=== PATIENT | male | born 2000 | race Caucasian/White ===

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

== ENCOUNTER 2025-01-26 15:40 | Outpatient (CLI) | payer MEDICAID, SELFPAY ==
[2025-01-26 16:26] LABS: Abs Immature Grans 0.02 10^3/uL (0.0-0.06); Absolute Basophil Count 0.03 10^3/uL (0.0-0.2); Absolute Lymphocyte Count 1.95 10^3/uL (1.2-3.4); Absolute Monocyte Count 0.63 10^3/uL (0.1-0.8); Absolute Neutrophil Count 6.43 10^3/uL (1.2-6.7); Basophils % 0.3 %; Eosinophils % 1.1 %; HCT 45.3 % (40.0-50.0); HGB 15.6 g/dL (13.5-17.5); Immature Grans % 0.2 %; Lymphocytes % 21.3 %; MCHC 34.4 % (32.0-36.0); MCV 90 fL (80-95); MPV 9.5 fL (8.0-11.0); Monocytes % 6.9 %; Neutrophils % 70.2 %; Platelet Count 277 10^3/uL (130-400); RBC 5.03 10^6/uL (4.36-5.78); RDW 11.6 % (11.8-14.1); RDW-SD 37.9 fL; WBC 9.16 10^3/uL (4.4-10.8)
[2025-01-26 17:06] LABS: ALT 38 U/L (16-63); AST 20 U/L (15-37); Albumin 3.9 g/dL (3.4-5.0); Alkaline Phosphatase 93 U/L (46-116); Anion Gap 5.3 mmol/L (3-11); BUN 16 mg/dL (7-18); Bilirubin, Total 0.4 mg/dL (0.2-1.0); CO2 31.7 mmol/L (21.0-32.0); CREATININE 0.9 mg/dL (0.70-1.30); Calcium 9.3 mg/dL (8.5-10.1); Chloride 105 mmol/L (98-107); Estimated GFR 123.84 (mL/min/1.73m2); Glucose 96 mg/dL (74-106); Potassium 4.1 mmol/L (3.5-5.1); Sodium 142 mmol/L (136-145); TSH 1.69 uIU/mL (0.36-3.74); Total Protein 7.5 g/dL (6.4-8.2)
[2025-01-26 17:08] LABS: Iron 88 ug/dL (65-175); Total Iron Binding Capacity 326 ug/dL (250-450)
[2025-01-26 17:12] LABS: Ferritin 71 ng/mL (26-388)
== END 2025-01-26 15:41 | disposition home or self-care (01) ==
PROVIDERS: PCP Pediatrics; Visit Provider Internal Medicine
DX: E27.40 Unspecified adrenocortical insufficiency (principal); G47.20 Circadian rhythm sleep disorder, unspecified type; F51.8 Other sleep disorders not due to a substance or known physiological condition
CPT/HCPCS: 36415; 80053; 82728; 83540; 83550; 84443; 85025